=== PATIENT | male | born 1985 | race Caucasian/White ===

== ENCOUNTER 2020-09-12 11:00 | Emergency (ER) | payer OTHER ==
[2020-09-12 11:09] VITALS: TEMP 98.2
[2020-09-12 11:58] LABS: Basophils # (A) 0.1 k/uL (0-0.2); Basophils % (A) 1 %; Eosinophils # (A) 0.1 k/uL (0-0.7); Eosinophils % (A) 2 %; HCT 49.2 % (39.0-53.0); HGB 16.6 gm/dL (13.0-17.5); Lymphocytes # (A) 1.5 k/uL (1.0-4.8); Lymphocytes % (A) 22 %; MCH 28.9 pg (25.0-35.0); MCHC 33.7 g/dL (31.0-37.0); MCV 85.8 fL (80.0-100.0); Mean Platelet Volume 7.1; Monocytes # (A) 0.7 k/uL (0-1.0); Monocytes % (A) 9 %; Neutrophils # (A) 4.5 k/uL (1.3-7.7); Neutrophils % (A) 64 %; Platelet Count 268 k/uL (150-450); RBC 5.73 m/uL (4.30-5.90); RDW 13.5 % (11.5-15.5)
[2020-09-12] MEDS ORDERED: KETOROLAC 15 MG/ML 1 ML VIAL IVP STA (12:02)
[2020-09-12 12:11] LABS: ALT 26 U/L (4-49); AST 26 U/L (17-59); African American GFR (CKD) >90 (>60 ml/min/1.73 sqM); Albumin 4.3 g/dL (3.5-5.0); Alkaline Phosphatase 64 U/L (38-126); Anion Gap 6 mmol/L; Blood Urea Nitrogen 9 mg/dL (9-20); C Reactive Protein <5.0 mg/L (<10.0); Calcium 9.3 mg/dL (8.4-10.2); Carbon Dioxide 23 mmol/L (22-30); Chloride 110 mmol/L (98-107); Glucose 104 mg/dL (74-99); Non-African American GFR(CKD) >90 (>60 ml/min/1.73 sqM); Potassium 4.4 mmol/L (3.5-5.1); Sodium 139 mmol/L (137-145); Total Bilirubin 0.8 mg/dL (0.2-1.3); Total Protein 7.5 g/dL (6.3-8.2)
--- NOTE | 2020-09-12 12:31 | XR ---
EXAMINATION TYPE: XR femur LT DATE OF EXAM: 09/12/2020 CLINICAL HISTORY: Open wound with swelling rule out infection. TECHNIQUE: Two views of the left femur are obtained. COMPARISON: None FINDINGS: There is no acute fracture or dislocation seen in the left femur. The left hip and joint appears within normal limits. Some demineralization is seen distally. Tricompartment joint spaces in the left knee are preserved. There is amputation defect proximal diaphysis of the tibia and fibula. N o suspicious bony destruction or osseous erosions to suggest acute osteomyelitis at this level identi fied. Overlying clothing and/or blanket material is present. IMPRESSION: As above.
--- NOTE | 2020-09-12 12:39 | ED ---
Wound/Laceration HPI - General Chief Complaint: Wound/Laceration Stated Complaint: Wound Time Seen by Provider: 09/12/20 11:09 Source: patient, police, RN notes reviewed Mode of arrival: wheelchair Limitations: no limitations - History of Present Illness Initial Comments: 34-year-old male presents emergency Department with chief complaint infection to his left [id number] amputation. Patient states he had surgery in January after he had an infection associated with hardware in his ankle. He states his surgery was performed in [place]. Patient states that he's had 2 other surgery with wound VAC prior to this. Patient states that the wound is opened up last day. No fevers or chills. He states there is some soreness associated with. Patient denies any known fevers or chills. Patient is currently incarcerated is right here with [facility] custody. - Related Data Home Medications Medication Instructions Recorded Confirmed Acetaminophen Tab [Tylenol] 975 mg PO BID PRN 09/12/20 09/12/20 Albuterol Inhaler [Ventolin Hfa 1 puff INHALATION RT-TID PRN 09/12/20 09/12/20 Inhaler] Albuterol Nebulized [Ventolin 2.5 mg INHALATION RT-TID PRN 09/12/20 09/12/20 Nebulized] Ciclesonide [Alvesco] 1 puff INHALATION RT-BID 09/12/20 09/12/20 Enoxaparin [Lovenox] 80 mg SQ TID 09/12/20 09/12/20 Ibuprofen [Motrin Ib] 800 mg PO BID PRN 09/12/20 09/12/20 Metoprolol Tartrate [Lopressor] 50 mg PO DAILY 09/12/20 09/12/20 Sodium Hypochlorite 1 dose TOPICAL DAILY 09/12/20 09/12/20 carvediloL [Coreg] 6.25 mg PO BID 09/12/20 09/12/20 lisinopriL [Zestril] 20 mg PO DAILY 09/12/20 09/12/20 Previous Rx's Medication Instructions Recorded Cephalexin [Keflex] 500 mg PO Q6HR #40 cap 09/12/20 Sulfamethox-Tmp 800-160Mg [Bactrim 1 each PO Q12HR #20 tab 09/12/20 Ds] Allergies Allergy/AdvReac Type Severity Reaction Status Date / Time No Known Allergies Allergy Verified 09/12/20 11:40 Review of Systems ROS Statement: Those systems with pertinent positive or pertinent negative responses have been documented in the HPI. ROS Other: All systems not noted in ROS Statement are negative. Past Medical History Past Medical History: Asthma, Deep Vein Thrombosis (DVT), Hypertension Additional Past Medical History / Comment(s): factor v disorder, cardiac arrhythmia History of Any Multi-Drug Resistant Organisms: None Reported Past Surgical History: Adenoidectomy, Orthopedic Surgery, Tonsillectomy Additional Past Surgical History / Comment(s): left bka Past Psychological History: No Psychological Hx Reported Smoking Status: Former smoker Past Alcohol Use History: None Reported Past Drug Use History: None Reported General Exam Limitations: no limitations General appearance: alert, in no apparent distress Head exam: Present: atraumatic, normocephalic, normal inspection Eye exam: Present: normal appearance, PERRL, EOMI. Absent: scleral icterus, conjunctival injection, periorbital swelling ENT exam: Present: normal exam, normal oropharynx, mucous membranes moist Neck exam: Present: normal inspection, full ROM. Absent: tenderness, meningismus, lymphadenopathy Respiratory exam: Present: normal lung sounds bilaterally. Absent: respiratory distress, wheezes, rales, rhonchi, stridor Cardiovascular Exam: Present: regular rate, normal rhythm, normal heart sounds. Absent: systolic murmur, diastolic murmur, rubs, gallop, clicks Extremities exam: Present: other (Left below-knee amputation there is noted wound dehiscence along prior surgical line. There is no significant erythema or drainage noted.) Skin exam: Present: warm, dry Course Vital Signs 09/12/20 11:05 Temperature 98.2 F Pulse Rate 53 L Respiratory 18 Rate Blood Pressure 152/95 O2 Sat by Pulse 100 Oximetry Medical Decision Making - Medical Decision Making Patient does have mild wound dehiscence on exam with minimal signs of infection. Labwork unremarkable x-ray shows no acute process. Patient will be discharged on antibiotics patient was given follow-up return over and prescription for [facility] to take to wound care. Return parameters were discussed. - Lab Data Result diagrams: 09/12/20 11:44 09/12/20 11:44 Lab Results 09/12/20 09/12/20 09/12/20 Range/Units 11:44 11:44 11:44 WBC 7.0 (3.8-10.6) k/uL RBC 5.73 (4.30-5.90) m/uL Hgb 16.6 (13.0-17.5) gm/dL Hct 49.2 (39.0-53.0) % MCV 85.8 (80.0-100.0) fL MCH 28.9 (25.0-35.0) pg MCHC 33.7 (31.0-37.0) g/dL RDW 13.5 (11.5-15.5) % Plt Count 268 (150-450) k/uL MPV 7.1 Neutrophils % 64 % Lymphocytes % 22 % Monocytes % 9 % Eosinophils % 2 % Basophils % 1 % Neutrophils # 4.5 (1.3-7.7) k/uL Lymphocytes # 1.5 (1.0-4.8) k/uL Monocytes # 0.7 (0-1.0) k/uL Eosinophils # 0.1 (0-0.7) k/uL Basophils # 0.1 (0-0.2) k/uL Sodium 139 (137-145) mmol/L Potassium 4.4 (3.5-5.1) mmol/L Chloride 110 H (98-107) mmol/L Carbon Dioxide 23 (22-30) mmol/L Anion Gap 6 mmol/L BUN 9 (9-20) mg/dL Creatinine 0.74 (0.66-1.25) mg/dL Est GFR (CKD-EPI)AfAm >90 (>60 ml/min/1.73 sqM) Est GFR (CKD-EPI)NonAf >90 (>60 ml/min/1.73 sqM) Glucose 104 H (74-99) mg/dL Plasma Lactic Acid Jus 1.2 (0.7-2.0) mmol/L Calcium 9.3 (8.4-10.2) mg/dL Total Bilirubin 0.8 (0.2-1.3) mg/dL AST 26 (17-59) U/L ALT 26 (4-49) U/L Alkaline Phosphatase 64 (38-126) U/L C-Reactive Protein <5.0 (<10.0) mg/L Total Protein 7.5 (6.3-8.2) g/dL Albumin 4.3 (3.5-5.0) g/dL Disposition Clinical Impression: Surgical wound dehiscence, Infection of amputation stump, left lower extremity Disposition: HOME SELF-CARE Condition: Stable Instructions (If sedation given, give patient instructions): Cellulitis (ED) Additional Instructions: Please follow up with wound clinic as directed. Please have daily wound care and take antibiotics as directed. Prescriptions: Sulfamethox-Tmp 800-160Mg [Bactrim Ds] 1 each PO Q12HR #20 tab Cephalexin [Keflex] 500 mg PO Q6HR #40 cap Is patient prescribed a controlled substance at d/c from ED?: No Referrals: Nonstaff,Physician [Primary Care Provider] - 1-2 days [facility] [NON-STAFF] - 1-2 days Time of Disposition: 13:17
[2020-09-12 13:30] VITALS: BP 150/89; PULSE 68; RESP 16
== END 2020-09-12 13:30 | disposition home or self-care (01) ==
LOC: EC 11:00
DX: T81.31XA Disruption of external operation (surgical) wound, not elsewhere classified, initial encounter (principal); T87.44 Infection of amputation stump, left lower extremity; J45.909 Unspecified asthma, uncomplicated; I10 Essential (primary) hypertension; Z79.01 Long term (current) use of anticoagulants; Z79.899 Other long term (current) drug therapy; Z79.51 Long term (current) use of inhaled steroids; Z87.891 Personal history of nicotine dependence; Z86.718 Personal history of other venous thrombosis and embolism; Z89.512 Acquired absence of left leg below knee
CPT/HCPCS: 36415; 80053; 83605; 85025; 86140; 87070; 87205; 73552; 96374; 99284; J1885